=== PATIENT | male | born 1975 | race Caucasian/White ===

== ENCOUNTER 2021-11-24 21:17 | Emergency (ER) | payer OTHER, SELFPAY ==
[2021-11-24 21:30] VITALS: BP 124/82; BP 140/96; PULSE 102; PULSE 110; RESP 20; TEMP 36.8; O2SAT 97; O2SAT 98; BMI 26.6
--- NOTE | 2021-11-24 21:36 | PC.NURSE ---
pt a&o, denies any sob or chest pain. pt able to speak in full sentence. no signs of distress.
--- NOTE | 2021-11-24 21:37 | ED.OVERDOSE ---
HPI - Overdose General Chief Complaint: Overdose Stated Complaint: overdose Time Seen by Provider: 11/24/21 21:25 Source: EMS Mode of arrival: EMS Limitations: no limitations History of Present Illness HPI Narrative: 46-year-old male here after unintentional overdose. Patient tells me that he was home alone as he is quarantining after a COVID exposure and was bored and he used 1/2 bag of heroin IV. Found by friend and given 4mg IN narcan with + effect. On arrival patient A&Ox4. C/o headache x several days and he is requesting COVID testing. He was exposed 5 days ago. No fevers, chills, cough, vomiting, diarrhea, diff breathing or chest pain. He denies SI/HI. He has been sober for 5 months. Not interested in detox resources or treatment. Related Data Allergies Allergy/AdvReac Type Severity Reaction Status Date / Time No Known Allergies Allergy Unverified 08/08/20 14:52 [No Known Allergies*] Review of Systems Review of Systems: Yes all other systems are reviewed and are negative Constitutional: Constitutional: Reports no additional constitutional complaints, Denies body ache(s), Denies chills, Denies fever(s), Reports headache(s) and Denies weakness Eyes: Eyes: Reports no additional eye complaints and Denies change in vision ENT: Reports system reviewed and no additional complaints, except as documented, Denies dizziness, Reports headache(s), Denies nasal congestion, Denies nasal discharge and Denies neck pain Cardiovascular: Cardiovascular: Reports no additional cardiovascular complaints, Denies chest pain, Denies leg edema and Denies dyspnea Respiratory: Respiratory: Reports no additional respiratory complaints, Denies cough and Denies dyspnea Gastrointestinal: Gastrointestinal: Reports no additional gastrointestinal complaints, Denies abdominal pain, Denies diarrhea, Denies nausea and Denies vomiting Genitourinary: Genitourinary: Denies urinary incontinence Musculoskeletal: Musculoskeletal: Reports no additional musculoskeletal complaints, Denies back pain, Denies arthralgias, Denies joint swelling, Denies neck pain, Denies numbness and Denies tingling Integumentary/Breasts: Skin/Breast: Reports system reviewed and no additional complaints, except as docu and Denies rash Neurologic: Reports system reviewed and no additional complaints, except as documented, Denies Abnormal speech present, Denies dizziness, Reports headache(s), Denies numbness, Denies tingling and Denies weakness PMF Past Medical History Attestation statement: The following information was validated with the patient. Source: old records reviewed and nursing notes reviewed Social History Social History Alcohol intake: current Alcohol intake frequency: holidays/special occasions only Patient Tobacco Use Status: Current everyday Tobacco user Use of substances other than those prescribed or required for medical reasons: Yes Substance Use Type: Heroin Substance Use Frequency: Chronic Longstanding Last Used Substance: Just Prior to Admission Any prior treatment program specific to substance use: Yes (was clean for 5 months) Advance Directives: No Advance Directives Information Provided: Yes Physical Exam Vital Signs: Vital Signs: Last Vital Signs Temp 98.3 F 11/24/21 21:30 Pulse 92 11/24/21 21:39 Resp 16 11/24/21 21:39 BP 121/80 11/24/21 21:39 Pulse Ox 97 11/24/21 21:39 BMI result Body Mass Index 26.6 Const: General: cooperative, healthy appearing, comfortable and no acute distress Orientation/consciousness: patient oriented x3 Limitations: no limitations HENMT: Head: Yes normal to inspection Ears: hearing grossly normal bilaterally General nose exam: Normal external nose present Face and sinus: Yes normal facial exam Mouth: Normal oral and palatal mucosa present Throat: Yes posterior oropharynx normal Eyes: General: appearance normal, both eyes and all related structures Pupils: Equal, round and reactive pupils present Neck: Neck: Yes normal visual inspection Chest: Chest palpation & inspection: normal inspection of the chest Resp: Effort & Inspection: normal respiratory effort Auscultation: clear to auscultation bilaterally Cardio: Rate: regular rate Rhythm: regular rhythm Peripheral pulses: Peripheral pulses 2+ throughout GI: Inspection: Yes normal to inspection Palpation (GI): Soft to palpation and nontender Auscultation: normal bowel sounds Back/Spine/Pelvis: Thoracic/Lumbar Spine: thoracic and lumbar spine normal to inspection Skin: General skin exam: no rashes or lesions noted Neuro: General: patient oriented x3, no focal motor deficits and normal sensation to monofilament Cranial nerves: Yes CN's II-XII intact bilaterally and Yes Equal, round and reactive pupils present Cognition (Neuro): normal cognition Speech: No Abnormal speech present Gait exam (Neuro): Normal gait present Motor exam (neuro): 5/5 motor strength present throughout Sensory Exam: Normal double simultaneous stimulation for sensation Extrem: General: Yes normal to inspection Course Course Course Narrative: 46-year-old male here after an unintentional overdose who received Narcan in the field. On arrival the patient is alert and oriented. Patient is 5 months sober and has been home quarantining after being exposed to a COVID positive friend and felt for today causing him to use some heroin. No suicidal or homicidal ideation. Vitals are stable. Patient is requesting COVID testing as he was exposed and has a complaints of a mild headache. Will monitor for brief time and send COVID screen. student success coach was made aware patient 2220-COVID screen negative. Patient was monitored in the ER for 1 hour. Is alert and oriented. His vitals are stable. He was offered to speak to our acid recovery operator and offered outpatient resources but declined these. He does not wish to go to detox or have any available resources at home. He also declined home Narcan. Reviewed worrisome signs and symptoms with the patient when to return to the emergency department. Comfortable discharge home. MDM - Overdose Lab Data Labs: Lab Results 11/24/21 Range/Units 21:40 COVID-19 (GINA) Negative (Negative) COVID-19 Clin Com See Note Discharge Plan Discharge Clinical Impression: Drug overdose Patient Disposition: Home, Self-Care Instructions: Adult Overdose (ED) Additional Instructions: Covid test is negative Our recovery team offered you additional resources but you declined this. Referrals: Physician,None [Primary Care Provider] - 2 days Interventions: ED Discharge Assessment Last Done: 11/24/21 22:21 Discharge Date/Time: 11/24/21 22:22
[2021-11-24 21:39] VITALS: BP 121/80; PULSE 92; RESP 16; O2SAT 97
[2021-11-24 22:05] LABS: COVID-19 Test Negative (Negative); IDNOW Serial# 9DD0AD1C
--- NOTE | 2021-11-24 22:10 | PC.NURSE ---
pt denies any SI at this time.
--- NOTE | 2021-11-24 22:14 | MHC.CM.ED ---
CM met with patient to offer [facility] [place], recovery coaching pamphlet at request of assistant baseball coach. Pt was pleasant, but refused offer of literature, stating he has that pamphlet from the court. Rebeca pool.
--- NOTE | 2021-11-24 22:18 | PC.NURSE ---
pt offered narcan but refused.
== END 2021-11-24 22:22 | disposition home or self-care (01) ==
PROVIDERS: Nurse Practitioner Family; Emergency Provider Internal Medicine
DX: T40.1X1A Poisoning by heroin, accidental (unintentional), initial encounter (principal); R51.9 Headache, unspecified; Y92.009 Unspecified place in unspecified non-institutional (private) residence as the place of occurrence of the external cause; Z20.822 Contact with and (suspected) exposure to COVID-19; F17.200 Nicotine dependence, unspecified, uncomplicated
CPT/HCPCS: 36415; 87635; 99283; 99285

== ENCOUNTER 2022-05-07 18:05 | Emergency (ER) | payer OTHER, SELFPAY ==
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
[2022-05-07 18:16] VITALS: BP 128/79; BP 138/95; PULSE 94; RESP 18; TEMP 37.3; O2SAT 96; O2SAT 98; BMI 26.6
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
[2022-05-07 19:00] LABS: MANUAL DIFF FLAG NO
[2022-05-07 19:02] LABS: Basophils Absolute Auto 0.1 X10*3/uL (0.0-0.2); Basophils Percent Auto 0.7 % (0-2); Eosinophils Absolute Auto 0.1 X10*3/uL (0.0-0.4); Eosinophils Percent Auto 1.1 % (0-4); Hemoglobin 15.5 g/dl (14.0-18.0); Imm Gran Abs Auto 0.03 X10*3/uL (0.00-0.03); Imm Gran Pct Auto 0.3 % (0.0-0.4); Lymphocytes Absolute Auto 3.2 X10*3/uL (1.2-4.9); Lymphocytes Percent Auto 32.9 % (20-40); Mean Corpuscular HGB Conc 33.7 g/dl (31.0-36.0); Mean Corpuscular Hemoglobin 31.4 pg (27.0-33.0); Mean Corpuscular Volume 93.1 fL (80.0-98.0); Mean Platelet Volume 9.4 fL (9.4-12.4); Monocytes Absolute Auto 0.7 X10*3/uL (0.1-1.2); Monocytes Percent Auto 7.4 % (2-11); Neutrophils Absolute Auto 5.6 x10*3/uL (2.0-8.3); Neutrophils Percent Auto 57.6 % (45-73); Platelet Count 297 X10*3/uL (160-400); Red Blood Count 4.94 X10*6/uL (4.60-5.80); White Blood Count 9.8 X10*3/uL (4.8-10.8)
[2022-05-07] MEDS: 0.9 % Sodium Chloride 1,000 ML 999 ML IV (19:36)
[2022-05-07 19:49] LABS: Ethanol 303 mg/dL
[2022-05-07 19:52] LABS: Troponin-I High Sensitivity 3.7 ng/L (<3.5-35.0)
[2022-05-07 20:12] LABS: Appearance Urine CLEAR; Color Urine YELLOW; Glucose Urine UA NEG (NEG); Leukocyte Esterase Urine NEG (NEG); Nitrite Urine NEG (NEG); PH 5.5 (5.0-8.0); Specific Gravity - Urine <= 1.005 (1.005-1.025); UACC Culture Trigger NO; Urine Blood TRACE (NEG); Urine Ketones NEG (NEG); Urine Protein NEG (NEG-TRACE)
--- NOTE | 2022-05-07 20:22 | PC.NURSE ---
Patient became increasingly agitated and not redirectable. Refused blood redraw from this RN and tech. Dr. Willoughby attempted to talk to patient who continued to refuse care. [employer] called, patient taken into police custody at 20:20 and left AMA.
[2022-05-07 20:31] LABS: WBC Urine 0 /HPF (0-4)
[2022-05-07 20:32] LABS: Bacteria Urine TRACE /LPF; RBC Urine 0 /HPF (0)
== END 2022-05-07 20:29 | disposition left against medical advice (07) ==
PROVIDERS: Emergency Provider Emergency Medicine
DX: F10.920 Alcohol use, unspecified with intoxication, uncomplicated (principal); Y90.8 Blood alcohol level of 240 mg/100 ml or more; S90.812A Abrasion, left foot, initial encounter; S80.812A Abrasion, left lower leg, initial encounter; V48.9XXA Unspecified car occupant injured in noncollision transport accident in traffic accident, initial encounter; M79.602 Pain in left arm; R45.1 Restlessness and agitation; F17.200 Nicotine dependence, unspecified, uncomplicated; Y93.9 Activity, unspecified; Y92.414 Local residential or business street as the place of occurrence of the external cause; Y99.9 Unspecified external cause status
CPT/HCPCS: 36415; 71250; 73060; 73600; 73620; 74176; 80048; 80076; 81001; 82077; 83690; 84484; 85025; 96360; 99283; 99284